=== PATIENT | female | born 1965 | race Caucasian/White ===

== ENCOUNTER → 2020-09-06 15:14 | Outpatient (CLI) | payer OTHER, SELFPAY ==
--- NOTE | ~2020-09-06 | MM_ITS ---
EXAMINATION: MM screening [facility] BI w [facility] HISTORY: Screening mammogram TECHNIQUE: Craniocaudal and mediolateral oblique 3-D tomosynthesis images were obtained and synthetic 2-D images were generated. CAD analysis was submitted and interpreted. COMPARISON: 06/21/2019, 11/08/2017, 05/24/2015 BREAST PARENCHYMAL COMPOSITION: The breasts are heterogeneously dense, which may obscure small masses . FINDINGS: There is no evidence of suspicious mass, calcification, or architectural distortion to sugg est malignancy in either breast. There has been no suspicious interval change. IMPRESSION: 1. No mammographic evidence of malignancy. 2. Recommend routine screening mammography in one year. BI-RADS Category 1: Negative Reviewed, dictated and finalized at location A. 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
== END ==
PROVIDERS: PCP Family Medicine; Visit Provider Family Medicine
DX: Z12.31 Encounter for screening mammogram for malignant neoplasm of breast (principal)
CPT/HCPCS: 77063; 77067

== ENCOUNTER → 2023-04-08 07:11 | Outpatient (CLI) | payer OTHER, SELFPAY ==
--- NOTE | ~2023-04-08 | MM_ITS ---
EXAMINATION: MM screening [facility] w [facility] HISTORY: Screening TECHNIQUE: Craniocaudal and mediolateral oblique 3-D tomosynthesis images were obtained and synthetic 2-D images were generated. CAD analysis was submitted and interpreted. COMPARISON: Comparison to multiple prior studies sequentially, with oldest reviewed study dated 06/20. BREAST PARENCHYMAL COMPOSITION: The breasts are heterogeneously dense, which may obscure small masses FINDINGS: There is no evidence of suspicious mass, calcification, or architectural distortion to sugg est malignancy in either breast. There has been no suspicious interval change. IMPRESSION: 1. No mammographic evidence of malignancy. 2. Recommend routine screening mammography in one year. BI-RADS Category 1: Negative Reviewed, dictated and finalized at location A.
== END ==
PROVIDERS: PCP Family Medicine; Visit Provider Family Medicine
DX: Z12.31 Encounter for screening mammogram for malignant neoplasm of breast (principal)
CPT/HCPCS: 77063; 77067

== ENCOUNTER 2023-07-09 11:24 | Outpatient (CLI) | payer OTHER, SELFPAY ==
--- NOTE | ~2023-07-09 | CT_ITS ---
EXAMINATION: CT abdomen pelvis wo con DATE: 07/09/2023 11:48 INDICATION: Right flank and lower abdominal pain TECHNIQUE: Computed tomography (CT) of the abdomen and pelvis was performed without intravenous contr ast. Automated exposure control and iterative reconstruction technique were employed. Exam dose: 262 .17 mGy-cm total exam DLP. COMPARISON: None. FINDINGS: There is minimal discoid atelectasis or scarring at the bases of both lower lobes. No infil trate or consolidation at the lung bases. Normal heart size. No pericardial or pleural effusion. The liver, gallbladder, bile ducts, pancreas, pancreatic duct, spleen and adrenal glands are unremark able. (This examination is not excluded gallstones; gallbladder ultrasound would be more sensitive an d accurate for this purpose.) No renal mass lesion or urinary tract calculus or hydroureteronephrosis. The urinary bladder is relat ively evacuated, otherwise unremarkable. The uterus and adnexal areas appear normal. Normal appendix. Diverticulosis of the sigmoid colon; no CT evidence of diverticulitis. No bowel obst ruction, bowel wall thickening, pneumatosis or intraperitoneal free air. Lumbar dextroscoliosis. Severe degenerative disc disease on the left at L4-5. No suspicious osteolyti c or osteoblastic lesions are noted. IMPRESSION: No urinary tract calculus or hydroureteronephrosis Normal appendix Diverticulosis of the sigmoid colon; no CT evidence of diverticulitis Reviewed, dictated and finalized at Location A. Reviewed, dictated and finalized at location B.
== END 2023-07-09 11:25 | disposition home or self-care (01) ==
PROVIDERS: PCP Family Medicine; Visit Provider Family Medicine
DX: K57.30 Diverticulosis of large intestine without perforation or abscess without bleeding (principal)
CPT/HCPCS: 74176

== ENCOUNTER 2024-06-22 06:57 | Outpatient (CLI) | payer OTHER, SELFPAY ==
--- NOTE | ~2024-06-22 | MR_ITS ---
MRI of the right knee Clinical history: Pain Technique: Coronal proton density and proton density-weighted images, sagittal proton-density and T2 fat-sat images, and axial proton-density fat-saturated images were acquired. Findings: Anterior and posterior cruciate ligaments are intact. Medial collateral ligament and the la teral collateral ligament complex are intact. Popliteus tendon is intact. There is complex tearing of the posterior horn of the medial meniscus, extending to the body segment. Lateral meniscus is intact. There is mild chondral thinning along the medial patellar facet. There is probable focal high-grade c hondromalacia at the medial tibial plateau region with underlying subchondral reactive marrow edema. Extensor mechanism is intact. Small joint effusion present. No Dave's cyst. Impression: Complex tearing of the posterior horn of the medial meniscus, extending into the body segment. 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 Reviewed, dictated and finalized at location . Impression: Complex tearing of the posterior horn of the medial meniscus, extending into th e body segment. 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
== END 2024-06-22 06:58 | disposition home or self-care (01) ==
LOC: MICIMG 06:58
PROVIDERS: PCP Nurse Practitioner Family; Visit Provider Physician Assistant Surgical
DX: S83.241A Other tear of medial meniscus, current injury, right knee, initial encounter (principal); M22.41 Chondromalacia patellae, right knee
CPT/HCPCS: 73721

== ENCOUNTER 2024-12-05 12:56 | Emergency (ER) | payer OTHER, SELFPAY ==
--- NOTE | ~2024-12-05 | XR_ITS ---
XR chest 2V Ordering provider: Bambi Fraga MD History: 59 years Female with . chest pressure, COUGH, SOB . Comparison: None. FINDINGS: MEDIASTINUM: The cardiac silhouette is not enlarged. LUNGS: No effusions or pneumothorax. Loss of silhouette of the right cardiac border with opacificatio n suggestive of atelectasis versus pneumonia in the middle lobe. OTHER: No free air under the diaphragm. IMPRESSION: Right middle lobe atelectasis versus pneumonia. Reviewed, dictated and finalized at location A.
--- NOTE | 2024-12-05 12:58 | ECG_ITS ---
Test Date: 2024-12-05 13:06:42 Measurements Intervals [place] Rate: 84 P: 54 DE: 155 QRS: -2 QRSD: 74 T: -8 QT: 351 QTc: 417 Interpretive Statements SINUS RHYTHM POSSIBLE LEFT ATRIAL ENLARGEMENT [-0.1mV P WAVE IN V1/V2] LOW QRS VOLTAGE IN PRECORDIAL LEADS [QRS DEFLECTION < 1.0 mV IN CHEST LEADS] NONSPECIFIC T WAVE ABNORMALITY ABNORMAL ECG Electronically Signed On 12-06-2024 12:08:41 CDT by Scott Branch M.D.
--- NOTE | 2024-12-05 13:04 | ED.CHESTPAIN ---
HPI - Chest Pain General Chief Complaint: Chest Pain <Collin Mclaughlin PA-C - Last Filed: 12/05/24 17:56> Stated Complaint: Chest tightness/pressure <Collin Mclaughlin PA-C - Last Filed: 12/05/24 17:56> Time Seen by Provider: 12/05/24 14:57 <Collin Mclaughlin PA-C - Last Filed: 12/05/24 17:56> Focused HPI: This is a 52-year-old with chief complaint of chest pain/pressure beginning yesterday. Reports pain somewhat worsened today so she called PCP referred her to the ER. States she has had a little dry cough but nothing productive her significant shortness of breath. Denies any recent illness otherwise. Pain is in the central chest and does not really radiate. Denies cardiac history or history of diabetes. GENERAL: Well-appearing, well-nourished, and in no acute distress. HEAD: Normocephalic, atraumatic. CHEST: Clear to auscultation. No respiratory distress. HEART: Regular rate and rhythm. NEURO: Alert and oriented x3. Patient screened in triage and initial orders placed. Additional care and disposition to be based upon diagnostic testing and treatment. <Collin Mclaughlin PA-C - Last Filed: 12/05/24 17:56> Source: patient <Collin Mclaughlin PA-C - Last Filed: 12/05/24 17:56> Mode of arrival: ambulatory <JUDD Herr Last Filed: 12/05/24 17:56> Limitations: no limitations <Collin Mclaughlin PA-C - Last Filed: 12/05/24 17:56> History of Present Illness HPI narrative: Agree with the above with the following additions/corrections: Patient presents with chest tightness/discomfort/pressure (hestitant to call it pain ) in the center of her chest. No palliating or provoking factors. Not positional. Tried Tums with no change. Non radiating, 6/10 in severity, constant. No shortness of breath, nausea, vomiting. No cough except for a scant tickle. No fever/chills. Decreased appetite. No lower extremity edema, unilaterally or bilaterally. No immobility in the past 3 days or surgeries in the past 4 weeks. No prior DVT/PE. No hemoptysis or history of malignancy. First went to urgent care but told could not work up chest pain. This has never happened before. Does not have a lining printer. Patient's PCP is in building with Margo Kimble. Cardiac risk factors: No HTN. HLD +/- (has been told high before but not on meds). No DM. Not obese (see MDM). Non smoker. No family history in first degree relative <65yo. No personal history of IA/TIA/CVA. <Bambi Fraga MD - Last Filed: 12/05/24 21:25> Related Data Home Medications: Home Medications ?Medication ?Instructions ?Recorded ?Confirmed ?Last Taken ?Type trazodone 50 mg tablet mg PO 05/25/24 05/25/24 Unknown History <Collin Mclaughlin PA-C - Last Filed: 12/05/24 17:56> Allergies/Adverse Reactions: Allergies Allergy/AdvReac Type Severity Reaction Status Date / Time No Known Allergies Allergy Unverified 12/05/24 12:57 <Collin Mclaughlin PA-C - Last Filed: 12/05/24 17:56> Review of Systems Review of Systems: All systems as dictated in HPI <Collin Mclaughlin PA-C - Last Filed: 12/05/24 17:56> [facility] Surgical History Surgical History: Surgical History History of urologic surgery TBT History of orthopedic surgery knee <Collin Mclaughlin PA-C - Last Filed: 12/05/24 17:56> Family History Family History: Family History (Updated 05/25/24 @ 08:39 by Ladonna Zhou MA) Mother Lung cancer Father Dementia <Collin Mclaughlin PA-C - Last Filed: 12/05/24 17:56> Social History Social History: Social History (Updated 05/25/24 @ 08:40 by Ladonna Zhou MA) Smoking status: Never smoker Alcohol intake: current Alcohol use details: socially Substance use: never Substance use type: does not use Current Housing: Decline to Answer Concerned About Future Housing: Decline to Answer Difficulty Paying Gas/Electric Bills: Decline to Answer Difficulty Paying for Meds: Decline to Answer Currently Unemployed: Decline to Answer Education: Decline to Answer Difficulty w/ Childcare or Family Care: Decline to Answer Living arrangements: with family Occupation/Education: occupation Gender identity (if verbalized by the patient): Female Sexual Orientation (if Verbalized by the Patient): Straight or Heterosexual <Collin Mclaughlin PA-C - Last Filed: 12/05/24 17:56> Exam Narrative: GENERAL: Well-appearing, well-nourished, and in no acute distress. HEAD: Normocephalic, atraumatic. EYES: PERRLA and EOMI. ENT: Nares clear, no rhinorrhea or epistaxis. Mucous membranes moist. Oropharynx without tonsillar hypertrophy exudate or other lesions. NECK: Supple. No adenopathy or masses. CHEST: No respiratory distress. Clear to auscultation. No wheezes rales or rhonchi HEART: Regular rate and rhythm. No murmur heard. Normal peripheral pulses. ABDOMEN: Soft, nontender, nondistended, normal active bowel sounds. MSK: Normal range of motion. No edema. SKIN: Warm, dry, no rash. NEURO: Alert and oriented x4. No focal deficits. PSYCH: Normal mood and affect. <Collin Mclaughlin PA-C - Last Filed: 12/05/24 17:56> GENERAL: Well-appearing, well-nourished, and in no acute distress. HEAD: Normocephalic, atraumatic. EYES: Non injected, non icteric ENT: Nares clear, no rhinorrhea or epistaxis. NECK: Supple. CHEST: Speaking in full sentences. No respiratory distress. HEART: Regular rate and rhythm. ABDOMEN: Soft, nondistended. EXTREMITIES: Normal range of motion. No lower extremity edema. SKIN: Warm, dry, no rash. NEURO: No focal deficits. Alert and oriented x3. PSYCH: Normal mood and affect. <Bambi Fraga MD - Last Filed: 12/05/24 21:25> Course Vital Signs Vital signs: Vital Signs Temperature 97.6 F 12/05/24 13:31 Pulse Rate 83 12/05/24 13:31 Respiratory Rate 16 12/05/24 13:31 Blood Pressure 133/74 12/05/24 13:31 Pulse Oximetry 100 12/05/24 13:31 Temperature 97.6 F 12/05/24 13:31 Pulse Rate 84 12/05/24 16:36 Respiratory Rate 16 12/05/24 16:36 Blood Pressure 125/73 12/05/24 16:36 Pulse Oximetry 99 12/05/24 16:36 Oxygen Delivery Room Air 12/05/24 15:08 <Collin Mclaughlin PA-C - Last Filed: 12/05/24 17:56> Vital Signs Temperature 97.6 F 12/05/24 13:31 Pulse Rate 83 12/05/24 13:31 Respiratory Rate 16 12/05/24 13:31 Blood Pressure 133/74 12/05/24 13:31 Pulse Oximetry 100 12/05/24 13:31 Temperature 97.6 F 12/05/24 13:31 Pulse Rate 84 12/05/24 16:36 Respiratory Rate 16 12/05/24 16:36 Blood Pressure 125/73 12/05/24 16:36 Pulse Oximetry 99 12/05/24 16:36 Oxygen Delivery Room Air 12/05/24 15:08 <Bambi Fraga MD - Last Filed: 12/05/24 21:25> MDM - Chest Pain MDM Narrative Medical decision making narrative: This is a yo presents to the ED for . Vitals . Exam shows Lab work . Imaging . Patient will be discharged in stable condition. Supportive measures discussed and return precautions given. Patient is understanding and agreeable with plan for discharge with PCP follow-up. <Collin Mclaughlin PA-C - Last Filed: 12/05/24 17:56> This is a 59 yo who presents to the ED for chest tightness/discomfort/pressure. Afebrile with vital signs within normal limits. Cannot apply PERC due to patient's age. Wells' Score for PE: Clinical S/S DVT (No 0, Yes +3) 0 PE #1 Dx OR equally likely (No 0, Yes +3) 0 HR >100 (No 0, Yes +1.5) 0 Immobiliazation at least 3 d OR surgery prev 4 wks (No 0, Yes +1.5) 0 Previous Dx DVT/PE (No 0, Yes +1.5): 0 Hemoptysis (No 0, Yes +1): 0 Malignancy w/ Tx within 6 mos or palliative (No 0, Yes +1): 0 D dimer ordered HEART SCORE History 2 highly suspicious 1 moderately suspicious 0 slightly suspicious History score [address] depression/elevation not due to LBBB, LVH, or digoxin [address] depression but LBBB, LVH, nonspecific repolarization changes 0 normal ECG score 0 Age 2 >/= 65 1 45-64 0 <45 Age score 1 Risk factors (HTN, hypercholesterolemia, DM, obesity with BMI >30, current smoker or cessation </=3mo), positive fam hx with parent or sibling with CVD before age 65, atherosclerotic disease (prior IA, PCI/CABG, CVA/TIA, or peripheral arterial disease) 2 >/= 3 risk factors or history of atherosclerotic dz 1 - 1-2 risk factors 0 no known risk factors Risk factor score 0-1 (possible hyperlipidemia, has been told elevated before but not on medication) Patient states weight 135 lb and height 5'3 for BMI 23.9 - not obese Initial Troponin 2 >3 times normal limit 1 1-3 times normal limit 0 less than or equal to normal limit Troponin score 0 Total HEART Score 1 or 2. Dimer normal. Will defer CT imaging. Patient does states she took famotidine / pepcid before coming to the ED; bought these OTC at the pharmacy. No prior GI diagnoses the at this time she does state that she has been taking 600 mg of ibuprofen 2-3 times per day. Possible gastritis. GI cocktail ordered and patient to be given Rx for short course omeprazole. Chest x-ray with right middle lobe atelectasis versus pneumonia. Shared decision making with the patient on deferring or doing a short course of antibiotics. Although patient is otherwise asymptomatic, she did decide to take a course of antibiotics. Patient will be discharged in stable condition. Supportive measures discussed and return precautions given. Patient is understanding and agreeable with plan for discharge with PCP follow-up as well as cardiology follow up for work up given her low, but not negligible, risk. <Bambi Fraga MD - Last Filed: 12/05/24 21:25> Differential Diagnosis Differential diagnosis: Likely stable angina, unstable angina pectoris, atypical chest pain, st elevation myocardial infarction, costochondritis, chest pain, biliary colic and other (pulmonary embolism) <Bambi Fraga MD - Last Filed: 12/05/24 21:25> Lab Data Attestation: I reviewed the patient's lab results. <Bambi Fraga MD - Last Filed: 12/05/24 21:25> Result diagrams: 12/05/24 13:15 12/05/24 13:15 <Collin Mclaughlin PA-C - Last Filed: 12/05/24 17:56> Labs: Lab Results 12/05/24 12/05/24 12/05/24 Range/Units 13:14 13:15 16:02 WBC 6.3 (4.5-10.0) K/mm3 RBC 4.42 (4.2-5.4) M/mm3 Hgb 13.8 (12.0-15.0) g/dL Hct 41.7 (37.0-47.0) % MCV 94.3 (80-100) fl MCH 31.2 (26-34) pg MCHC 33.1 (32-36) g/dl RDW 12.6 (11.5-14.5) % Plt Count 218 (150-375) k/mm3 MPV 11.3 H (7.4-10.4) fl Immature Gran % (Auto) 0.2 (0-0.5) % Neut % (Auto) 60.8 (45.5-73.1) % Lymph % (Auto) 28.4 (18.3-44.2) % Emanuel % (Auto) 8.7 H (2.6-8.5) % Eos % (Auto) 1.3 (0-4.4) % Baso % (Auto) 0.6 (0.2-1.2) % Lymph # (Auto) 1.80 (0.9-3.2) K/mm3 Emanuel # (Auto) 0.6 (0.1-0.6) K/mm3 Eos # (Auto) 0.1 (0-0.3) K/mm3 Baso # (Auto) 0.0 (0.0-0.1) K/mm3 Abs Immat Gran (auto) 0.01 (0.00-0.031) K/mm3 Absolute Neuts (auto) 3.9 (1.3-6.7) K/mm3 Absolute Nucleated RBC 0.000 (0.0-0.012) K/mm3 Nucleated RBC % 0.0 (0.0-0.2) % PT 12.6 (11.1-14.7) Seconds INR 0.9 APTT 26.1 (22.3-36.8) Seconds D-Dimer < 0.27 (<0.48) ug/mL Sodium 141 (137-145) mmol/L Potassium 3.9 (3.4-5.0) mmol/L Chloride 102 (98-107) mmol/L Carbon Dioxide 28 (22-30) mmol/L Anion Gap 11 (4-12) mmol/L BUN 15 (7-17) mg/dL Creatinine 0.99 (0.7-1.0) mg/dL Estim Creat Clear Calc Not Reportable Estimated GFR 58 L (59 - ) Glucose 112 H (65-110) mg/dL Calcium 9.8 (8.4-10.2) mg/dL Total Bilirubin 0.3 (0.2-1.3) mg/dL AST 23 (14-36) U/L ALT 16 (6-35) U/L Alkaline Phosphatase 62 (38-126) U/L Troponin I < 0.012 < 0.012 (0.000-0.034) ng/mL Total Protein 8.0 (6.3-8.2) g/dL Albumin 4.7 (3.5-5.1) g/dL Lipase 113 (23-300) U/L <Collin Mclaughlin PA-C - Last Filed: 12/05/24 17:56> Lab Results 12/05/24 12/05/24 12/05/24 Range/Units 13:14 13:15 16:02 WBC 6.3 (4.5-10.0) K/mm3 RBC 4.42 (4.2-5.4) M/mm3 Hgb 13.8 (12.0-15.0) g/dL Hct 41.7 (37.0-47.0) % MCV 94.3 (80-100) fl MCH 31.2 (26-34) pg MCHC 33.1 (32-36) g/dl RDW 12.6 (11.5-14.5) % Plt Count 218 (150-375) k/mm3 MPV 11.3 H (7.4-10.4) fl Immature Gran % (Auto) 0.2 (0-0.5) % Neut % (Auto) 60.8 (45.5-73.1) % Lymph % (Auto) 28.4 (18.3-44.2) % Emanuel % (Auto) 8.7 H (2.6-8.5) % Eos % (Auto) 1.3 (0-4.4) % Baso % (Auto) 0.6 (0.2-1.2) % Lymph # (Auto) 1.80 (0.9-3.2) K/mm3 Emanuel # (Auto) 0.6 (0.1-0.6) K/mm3 Eos # (Auto) 0.1 (0-0.3) K/mm3 Baso # (Auto) 0.0 (0.0-0.1) K/mm3 Abs Immat Gran (auto) 0.01 (0.00-0.031) K/mm3 Absolute Neuts (auto) 3.9 (1.3-6.7) K/mm3 Absolute Nucleated RBC 0.000 (0.0-0.012) K/mm3 Nucleated RBC % 0.0 (0.0-0.2) % PT 12.6 (11.1-14.7) Seconds INR 0.9 APTT 26.1 (22.3-36.8) Seconds D-Dimer < 0.27 (<0.48) ug/mL Sodium 141 (137-145) mmol/L Potassium 3.9 (3.4-5.0) mmol/L Chloride 102 (98-107) mmol/L Carbon Dioxide 28 (22-30) mmol/L Anion Gap 11 (4-12) mmol/L BUN 15 (7-17) mg/dL Creatinine 0.99 (0.7-1.0) mg/dL Estim Creat Clear Calc Not Reportable Estimated GFR 58 L (59 - ) Glucose 112 H (65-110) mg/dL Calcium 9.8 (8.4-10.2) mg/dL Total Bilirubin 0.3 (0.2-1.3) mg/dL AST 23 (14-36) U/L ALT 16 (6-35) U/L Alkaline Phosphatase 62 (38-126) U/L Troponin I < 0.012 < 0.012 (0.000-0.034) ng/mL Total Protein 8.0 (6.3-8.2) g/dL Albumin 4.7 (3.5-5.1) g/dL Lipase 113 (23-300) U/L <Bambi Fraga MD - Last Filed: 12/05/24 21:25> Imaging Data Radiologist's impression: Impressions Chest X-Ray 12/05/24 13:39 IMPRESSION: Right middle lobe atelectasis versus pneumonia. <Bambi Fraga MD - Last Filed: 12/05/24 21:25> ECG Data EKG #1: Attestation: I personally reviewed and interpreted this ECG as follows: <Bambi Fraga MD - Last Filed: 12/05/24 21:25> ECG completion date: 12/05/24 <Bambi Fraga MD - Last Filed: 12/05/24 21:25> ECG completion time: 13:06 <Bambi Fraga MD - Last Filed: 12/05/24 21:25> Interpretation: Normal sinus rhythm at a rate of 84 beats per minute. OR interval 155. QRS 74. QT/QTC 351/393. Good R-wave progression across the precordial leads. T-wave inversion in lead 3 but not in contiguous inferior leads 2 and AVF. No other T-wave inversions. <Bambi Fraga MD - Last Filed: 12/05/24 21:25> EKG #2: Attestation: I personally reviewed and interpreted this ECG as follows: <Bambi Fraga MD - Last Filed: 12/05/24 21:25> ECG completion date: 12/05/24 <Bambi Fraga MD - Last Filed: 12/05/24 21:25> ECG completion time: 16:33 <Bambi Fraga MD - Last Filed: 12/05/24 21:25> Interpretation: Normal sinus rhythm at a rate of 72 beats per minute. OR interval 163. QRS 76. QT/QTC 383/407. Good R-wave progression across the precordial leads. T-wave inversion isolated to lead 3 but otherwise upright in normal in contiguous inferior leads 2 and AVF. <Bambi Fraga MD - Last Filed: 12/05/24 21:25> Discharge Plan Discharge Clinical Impression: Chest pain, Abnormal chest x-ray <Collin Mclaughlin PA-C - Last Filed: 12/05/24 17:56> Patient Disposition: Home, Self-Care <Collin Mclaughlin PA-C - Last Filed: 12/05/24 17:56> Condition: Stable <Collin Mclaughlin PA-C - Last Filed: 12/05/24 17:56> Instructions: Antibiotic Form, Chest Pain (DC), Gastritis (DC) <Collin Mclaughlin PA-C - Last Filed: 12/05/24 17:56> Additional Instructions: As we discussed, the etiology of your symptoms remains unclear however you are otherwise low risk and based on this, recommend following up with her primary care physician. They can either help you with outpatient workup/follow-up by ranging these details. Alternatively the name of a lining printer is listed below. Return to the emergency department with any new or worsening symptoms. Acetaminophen/Tylenol (maximum 4000 mg per day) is safe to take with NSAIDs (ibuprofen/Motrin) for pain relief. Given that you do use ibuprofen multiple times a day, it is possible that this represents gastritis. Make sure you are taking that medicatoin with food to reduce side effects if this is contributing or causing your symptoms. You can also trial a short course of omeprazole. <Collin Mclaughlin PA-C - Last Filed: 12/05/24 17:56> Patient Language: Turkish <Collin Mclaughlin PA-C - Last Filed: 12/05/24 17:56> Prescriptions: New omeprazole 20 mg tablet,delayed release (DR/EC) 20 mg PO DAILY Qty: 14 0RF acetaminophen 500 mg capsule 1,000 mg PO Q6H PRN (Reason: pain) Qty: 30 0RF azithromycin 250 mg tablet 250 mg PO DAILY 4 Days Qty: 4 0RF Rx Instructions: start on day 2 of therapy No Action trazodone 50 mg tablet PO estradiol 0.01 % (0.1 mg/gram) cream 1 g vaginal .COMPLEX Qty: 42.5 5RF Rx Instructions: Place 1g vaginally every other day for the first two weeks. After that, continue using 1g twice weekly <Collin Mclaughlin PA-C - Last Filed: 12/05/24 17:56> Follow-up/Referrals: Farrell,Andrés Mckinney APRN [Primary Care Provider] - Chinmay Beck MD [Physician] - (Cardiology) <Collin Mclaughlin PA-C - Last Filed: 12/05/24 17:56> Stand Alone Forms: Work/School Release IP <Collin Mclaughlin PA-C - Last Filed: 12/05/24 17:56> Time of Disposition: 16:53 <Collin Mclaughlin PA-C - Last Filed: 12/05/24 17:56> 16:53 <Bambi Fraga MD - Last Filed: 12/05/24 21:25>
[2024-12-05 13:31] VITALS: BP 133/74; PULSE 83; RESP 16; TEMP 36.4; O2SAT 100
[2024-12-05 13:33] LABS: Basophils Percent Auto 0.6 % (0.2-1.2); Eosinophils Absolute Auto 0.1 K/mm3 (0-0.3); Eosinophils Percent Auto 1.3 % (0-4.4); Hematocrit 41.7 % (37.0-47.0); Hemoglobin 13.8 g/dL (12.0-15.0); Immature Granulocyte Absolute 0.01 K/mm3 (0.00-0.031); Immature Granulocyte Percent A 0.2 % (0-0.5); Lymphocytes Percent Auto 28.4 % (18.3-44.2); Mean Corpuscular HGB Conc 33.1 g/dl (32-36); Mean Corpuscular Hemoglobin 31.2 pg (26-34); Mean Corpuscular Volume 94.3 fl (80-100); Mean Platelet Volume 11.3 fl (7.4-10.4); Monocytes Absolute Auto 0.6 K/mm3 (0.1-0.6); Monocytes Percent Auto 8.7 % (2.6-8.5); Neutrophils Absolute Auto 3.9 K/mm3 (1.3-6.7); Neutrophils Percent Auto 60.8 % (45.5-73.1); Platelet Count Result 218 k/mm3 (150-375); Red Blood Count 4.42 M/mm3 (4.2-5.4); Red Cell Distribution Width 12.6 % (11.5-14.5); White Blood Count 6.3 K/mm3 (4.5-10.0)
[2024-12-05 13:48] LABS: Alanine Aminotransferase 16 U/L (6-35); Albumin Level 4.7 g/dL (3.5-5.1); Alkaline Phosphatase 62 U/L (38-126); Anion Gap 11 mmol/L (4-12); Aspartate Amino Transferase 23 U/L (14-36); Bilirubin,Total 0.3 mg/dL (0.2-1.3); Blood Urea Nitrogen 15 mg/dL (7-17); Calcium 9.8 mg/dL (8.4-10.2); Carbon Dioxide 28 mmol/L (22-30); Chloride 102 mmol/L (98-107); Estimated Glomerular Filt Rate 58; Glucose 112 mg/dL (65-110); Lipase 113 U/L (23-300); Potassium 3.9 mmol/L (3.4-5.0); Sodium 141 mmol/L (137-145)
[2024-12-05 14:00] LABS: Troponin I < 0.012 ng/mL (0.000-0.034)
[2024-12-05 14:11] LABS: INR 0.9; Prothrombin Time 12.6 Seconds (11.1-14.7)
[2024-12-05 14:13] LABS: Partial Thromboplastin Time 26.1 Seconds (22.3-36.8)
--- OUTSIDE RECORDS SUMMARY | 2024-12-05 14:15 | XMS_ITS | Clinical Summary ---
Author Organization [facility] Address [address] [place] [address] Care Team Providers Care Ski Tow Operator Name Role Phone Unavailable Primary Care Provider Unavailabl e Source Comments [facility],non-owned Affiliates and Associated Physician Practices is amultiple site organization consisting of ambulatory clinics and hospital sitesin [place], [place], [place] and [place]. This disclosure is being madepursuant to the Care Everywhere program and may not contain all information available regarding this patient. Last updated 18.[facility] Allergies No known active allergies Medications * Be aware that medications may not be up to date on this document. Alwaysverify current medications with the patient. Medication Sig Dispensed Refills Start Date End Date Status traZODone (DESYREL) 100 MG tablet Take 100 mg by mouth at bedtime Active celecoxib (CELEBREX) 100 MG capsule Take 100 mg by mouth once daily Active Social History Tobacco Use Types Packs/Day Years Used Date Smoking Tobacco: Never Smokeless Tobacco: Never Alcohol Use Standard Drinks/Week Comments Never 0 (1 standard drink = 0.6 oz pur e alcohol) AUDIT-C Answer Date Recorded Frequency of Alcohol Consumption Never 10/08/2019 Average Number of Drinks Not on file 020 Frequency of Binge Drinking Not on file 09/20 Sex and Gender Information Value Date Recorded Sex Assigned at Not on file Gender Identity Not on file Sexual Orientation Not on file Last Filed Vital Signs Vital Sign Reading Time Taken Comments Blood Pressure 124/74 03/29/2020 12:28 PM CDT Pulse 80 03/29/2020 12:28 PM CDT Temperature 36.7 C (98.1 F) 03/29/2020 12:28 PM CDT Respiratory Rate 16 03/29/2020 12:28 PM CDT Oxygen Saturation 99% 03/29/2020 12:28 PM CDT Inhaled Oxygen Concentration - - Weight 56.7 kg (125 lb) 03/29/2020 12:28 PM CDT Height 160 cm (5' 3 ) 03/29/2020 12:28 PM CDT Body Mass Index 22.14 03/29/2020 12:28 PM CDT Plan of Treatment Health Maintenance Due Date Last Done Comments COLOGUARD (AGES 45-75) - COL ON CA SCREENING 1967 COLON MONITORING 1967 COLONOSCOPY - COLON CA SCREENING 1967 CT COLONOGRAPHY - COLON CA SCREENING 1967 Colorectal Cancer Screening 1967 FIT - COLON CA SCREENING 1967 FLEX SIG - COLON CA SCREENING 1967 LIPID TESTING 1967 MAMMOGRAM 1967 PAP SMEAR 1967 HIV SCREENING 1982 HEPATITIS C SCREENING 11/06/1985 DTAP/TDAP/TD VACCINES (1 - Tdap) 1986 HEPATITIS B VACCINE (1 of 3 - 19+ 3-dose series) 1986 PNEUMOCOCCAL VACCINE 50+ (1 of 1 - PCV) 2017 ZOSTER VACCINE (1 of 2) 2017 COVID-19 VACCINE ( - 2023-2 5 season) 2024 INFLUENZA VACCINE (#1) 2024 DEPRESSION SCREENING 09/20/2024 HIB VACCINE Aged Out No longer eligi ble based on patient's age to complete this topic HPV VACCINE Aged Out No longer eligi ble based on patient's age to complete this topic MENINGOCOCCAL (Group B) VACC INE SHARED DECISION-MAKING Aged Out No longer eligibl e based on patient's age to complete this topic MENINGOCOCCAL GROUPS A/C/Y/W VACCINE Aged Out No longer eligible b ased on patient's age to complete this topic PNEUMOCOCCAL VACCINE Aged Out No long er eligible based on patient's age to complete this topic
--- OUTSIDE RECORDS SUMMARY | 2024-12-05 14:15 | XMS_ITS | Data Portability ---
Author Organization [place] [facility], Main Office Address [address] [place] [id number] Care Team Providers [facility] Aide Name Role Phone PARTHA ORELLANA ZACHARY Primary Care Provider [phone] PARTHA ORELLANA ZACHARY Referring Provider Assessment Encounter Date Assessment Date Assessment LastModified by Organization Details LastModified Time 05/29/2024 05/29/2024 The patient has continuing right knee pain mostly localized to the medial compartment. Her signs and symptoms are consistent with possible medial meniscal pathology. We talked about treatment options today in detail she failed conservative measures so far and has on going pain for several months now. We talked about getting an MRI scan she would like to proceed we will have her see Dr. Kelley for follow up with the MRI scan results. If she does have new significant medial meniscal pathology knee arthroscopy could be considered but she could have articular degenerative changes as she has a little narrowing on the x-ray in the medial compartment. We talked about the fact that knee arthroscopy may not be of benefit if she does have significant osteoarthritis. We will see what the MRI scan shows. She voiced understanding agrees above plan she will continue with current conservative measures including therapy and oral anti-inflammator ies and she will call for any further problems difficulties or questions. [email or web address] Not available 05/29/2024 10:42:10 06/28/2024 06/28/2024 58-year-old female presents for evaluation of her right knee. She reports pain, catching, and locking up of the knee for the past 6 months. She denies any acute injury. Pain is located over the medial part of the knee. She has giving out of the knee. She previously saw Reed PETERS. She had course of treatment with ibuprofen, Voltaren, and cortisone injection in March which did not help. She currently still rates her pain as 6 to 7/10. She previously had a knee scope in 2019 for partial meniscectomy. She has tenderness palpation of the medial joint line. Range of motion 0-130, positive Kaela's, pain at terminal flexion. Stable ligaments. Neurovascular intact. MRI reviewed, demonstrating medial compartment chondromalacia, degenerative tear of the posterior medial meniscus root and body She has a meniscus tear causing mechanical symptoms of catching locking failing conservative management. We discussed the next step would be surgery for partial medial meniscectomy. We discussed that this would primarily be for her mechanical symptoms and may or may not have improvement in her pain given her pre-existing wear and tear. Risks, benefits, and alternatives to surgery were discussed with the patient. Risks include but are not limited to pain, stiffness, infection, bleeding, blood clot, injury to other structures including nerves or blood vessels, need for future surgery, and anesthesia risks. We discussed the goal of surgery is to improve symptoms but there is no guarantee of improvement and it is possible the patient's condition is worse after surgery. Patient agreed and would like to proceed. [email or web address] Not available 06/30/2024 16:37:37 08/04/2024 08/04/2024 58-year-old patient presents today for 1st postop follow-up after right knee arthroscopy and medial meniscectomy on 07/25/[address] Kelley. She states she is doing well overall, 2/10 pain. She is not taking any medications for pain. She has been weight-bearing as tolerated. She denies any catching or locking. Physical exam: Incisions are clean dry and intact without signs and symptoms of infection. Sutures removed and Steri-Strips were placed. Range of motion 0 to 140. No pain with knee range of motion. Tenderness with palpitation around incision sites. Sensation intact throughout. She is progressing as expected. We discussed incisional care in when to call the office if there is changes. She can continue to be activities as tolerated. We will see her back in 4 weeks for recheck. She is in agreement with this plan. Not available 08/04/2024 11:12:40 09/01/2024 09/01/2024 HPI: 58 year old female presents today for a follow-up appointment after undergoing right knee arthroscopy and medial meniscectomy on July 25, 2024, with Dr. Kelley. She is currently five weeks post-surgery and reports that she is doing well overall. She reports experiencing popping and clicking, which are new symptoms that she had never experienced before the surgery. She will occasionally have pain with the popping/clicking . She rates her pain as a 3 out of 10 and is taking ibuprofen twice daily. The patient has been weight-bearing as tolerated and has been participating in physical therapy with her , who is a physical therapist. She denies experiencing any catching or locking in the knee. Physical Exam: General: Normal appearance. No acute distress. Inspection: Incision well healed. No evidence of swelling, erythema, bruising or deformity. Palpation: Nontender to palpation ROM: 0-140. No pain with ROM. Gait: Normal Gait Motor: 5/5 strength in all other planes. Sensation: Lower extremity sensation intact. Assessment & Plan: She is progressing as expected. She can continue activities as tolerated. Continue to progress with physical therapy. Follow-up: 6 weeks for recheck. [email or web address] Not available 09/01/2024 10:31:26 10/13/2024 10/13/2024 58-year-old patient presents today for postop follow-up after right knee arthroscopy and medial meniscectomy on 07/25/[address] Kelley. She states she is doing okay overall, 3/10 pain. She is still experiencing a new catching/grindin g that she did not experience before surgery. It occurs when she is walking, but not when working out. The sudden pain causes her to feel like the knee may buckle. She has been experiencing swelling in the knee in the last few weeks, but it has since resolved. Physical exam: Incisions are well healed. ROM 1-150. Sensation intact throughout. We discussed that options today would be continue conservative measures of therapy exercise, anti-inflammator ies, and possible injections vs new MRI. She would like to continue conservative measures at this time. She can continue to be activities as tolerated. We will see her back as needed for pain. Not available 10/13/2024 09:14:29 Plan of Treatment Reminders Order Date Submit Date Provider Last Modified By Organization Details Last Modified Time Details Appointments Follow Up 30 2024 10:00A M Margo Kimble NP Not available Not available Not available Lab None recorded. Referral None recorded. Procedures None recorded. Surgeries None recorded. Imaging MRI, knee, w/o contrast - please contact patient to schedule. Please give patient disc 2023 024 [facility], [address], [place], [address], 06/22/2024 09:03:17 Medication Orders None recorded. Patient TargetsNo targets recorded. Patient InstructionsNo instructions recorded. Reason for Referral None Reported. Results Created Date Observation Date Name Description Value Unit Range Abnormal Flag Note LastModifiedBy Organization Detail LastModifiedTime 06/22/2006/22/2024 MRI, knee, w/o contr ast No observ ation record ed. [email or web address] [facility] [address], [place], [address], 06/22/2024 09:35:37 06/22/20 24 06/22/2024 MRI, knee, w/o contr ast No observ ation record ed. [email or web address] [facility] [address], [place], [address], 06/22/2024 14:09:51 Result Notes None recorded. Problems Name Problem SNOMED Code Status Onset Date Resolution Date Notes Provider Name and Address Organization Details Recorded Time Degenerati on of cervical interverte bral disc 06768353 Active 2022 Not Available [facility] 3 18:23:55 Vitamin D deficiency 35988957 Active 2022 Not Available [facility] 3 18:23:55 Abdominal pain 93815836 Active 2022 Not Available [facility] 3 18:23:55 Pain of right knee joint 5660593554667 00 Active 2023 Silvina Alcantar, ATC L null, [place] [facility] [place] [employer] [facility] 4 15:07:18 Osteoarthr itis of right knee joint 0005220815067 00 Active 2023 FRAN Ambriz [address], [address], [place], [address] , [employer] [facility] 4 15:41:15 Derangemen t of right knee 5787288937683 9109 Active 2023 FRAN Ambriz [address], [address], [place], [address] , [employer] [facility] 4 10:42:21 Tear of medial meniscus of knee 183681498 Active 2023 Barry Kelley MD [address], [address], [place], [address] , [employer] [facility] 4 08:44:43 Tear of medial meniscus of knee 396281267 Active 2024 Olimpia Ryder Alayna null, [place] [employer] [facility] 5 08:56:00 Insomnia 164114961 Active 2024 PARTHA Johnson [address], [address], [place], [address] , [employer] [facility] 5 16:17:50 Problem Notes None recorded. Procedures Surgical History None recorded. Imaging Results Imaging Date Name Status LastModified by Organiz ation Details LastModified Time 06/22/2024 MRI, knee, w/o contrast completed [email or web address] [facility] [address], [place], [address], 06/22/2024 09:35:37 06/22/2024 MRI, knee, w/o contrast completed [email or web address] [facility] [address], [place], [address], 06/22/2024 14:09:51 Procedure Notes None recorded. Medical Equipment None Reported. Allergies No known drug allergies Medications Name Sig Start Date Stop Date Status Note LastModified by Organization Details LastModified Time celecoxib 200 mg capsule TAKE 1 CAPSULE BY MOUTH IN THE MORNING active Not Available Not Available No t Available prednisone 10 mg tablet PLEASE SEE ATTACHED FOR DETAILED DIRECTION S 08/01 completed Not Available Not Available Not Available trazodone 50 mg tablet TAKE 1 TABLET BY MOUTH AT BEDTIME NEEDED FOR INSOMNIA active Not Available Not Available No t Available hydrocodone 5 mg-acetamin ophen 325 mg tablet TAKE 1 TABLET BY MOUTH EVERY 6 HOURS active Not Available Not Available No t Available meloxicam 15 mg tablet TAKE 1 TABLET BY MOUTH EVERY DAY NEEDED 03/30 completed Not Available Not Available Not Available phenazopyri dine 200 mg tablet TAKE 1 TABLET ORAL ROUTE 3 TIMES PER DAY FOR 6 DOSES NEEDED FOR PAIN 03/30 completed Not Available Not Available Not Available ciprofloxac in 500 mg tablet TAKE 1 TABLET BY MOUTH TWICE A DAY FOR 7 DAYS active Not Available Not Available No t Available sulfamethox azole 800 mg-trimetho prim 160 mg tablet TAKE 1 TABLET BY MOUTH 2 TIMES A DAY FOR 7 DAYS active Not Available Not Available No t Available prednisone 10 mg tablets in a dose pack Take 1 tab by mouth, 3 times a day for 3 daysTake 1 tab by mouth 2 times a day for 2 daysTake 1 tab by mouth once a day for 1 day 08/01 completed Not Available Not Available Not Available Kenalog 10 mg/mL suspension for injection Take 2 mL by injection route. 2023 active [facility]: 0003- 0494- 20 Not Available Not Available Not Available phenazopyri dine 100 mg tablet TAKE 2 TABLETS BY MOUTH 3 TIMES A DAY FOR 2 DAYS. TAKE WITH FOOD. 10/12 completed Not Available Not Available Not Available cephalexin 500 mg capsule 09/04 completed Not Available Not Available Not Available aspirin 81 mg chewable tablet 09/04 completed Not Available Not Available Not Available estradiol 0.01% (0.1 mg/gram) vaginal cream active Not Available Not Available Not Available bupropion HCl XL 150 mg 24 hr tablet, extended release 03/25 completed Not Available Not Available Not Available Marcaine (PF) 0.5 % (5 mg/mL) injection solution Take 4 mL by injection route. 2023 active Not Available Not Available Not Avai lable nitrofurant oin monohydrate /macrocryst als 100 mg capsule TAKE 100 MILLIGRAM S ORAL ROUTE EVERY 12 HOURS FOR 7 DAYS 03/30 completed Not Available Not Available Not Available ibuprofen active Not Available Not Ana ilable Not Available lidocaine (PF) 10 mg/mL (1 %) injection solution In office injection administe red by the provider 12/03 completed [facility]: 0409- 4276- 17 Not Available Not Available Not Available Shingrix (PF) 50 mcg/0.5 mL intramuscul ar suspension, kit 09/04 completed Not Available Not Available Not Available Fluzone Quad (PF) 60 mcg (15 mcg x 4)/0.5 mL IM syringe [facility] 06/27 completed Not Available Not Available Not Available Vitals Date Recorded Body height Provider Name an d Address Organization Details Last Updated DateTime 05/29/2024 165.1 cm Nidhi Gorman [employer] [facility] 05/29/2024 10:12:04 Date Recorded Body height Body mass index (BMI) Body weight Provider Name and Address Organization Details Last Updated DateTime 06/28/2024 160.02 cm 23.9 kg/m2 13310.97 g Benita Tijerina CNA [employer] [facility] 06/28/2024 09:04:13 Date Recorded Body height Body mass index (BMI) Body weight Pain severity - 0-10 verbal numeric rating [Score] - Reported Provider Name and Address Organization Details Last Updated DateTime 08/04/2024 160.02 cm 23.9 kg/m2 75646.97 g 2 Olimpia Ryder [facility] [employer] [facility] 08/04/2024 09:59:51 Date Recorded Body height Body mass index (BMI) Body weight Pain severity - 0-10 verbal numeric rating [Score] - Reported Provider Name and Address Organization Details Last Updated DateTime 09/01/2024 160.02 cm 23.9 kg/m2 46214.97 g 3 Olimpia Ryder [facility] [employer] [facility] 09/01/2024 09:29:50 Date Recorded Body height Body mass index (BMI) Body weight Pain severity - 0-10 verbal numeric rating [Score] - Reported Provider Name and Address Organization Details Last Updated DateTime 10/13/2024 160.02 cm 23.9 kg/m2 73702.97 g 3 Olimpia Ryder [facility] [employer] [facility] 10/13/2024 08:55:35 Social History Question Answer Notes LastModified by Organizat ion Details LastModified Time Tobacco Smoking Status Never Smoker Shama KELI Gray, [employer] [facility] 01/05/2023 10:56:14 What Is Your Level Of Alcohol Consumption? None Information not available 01/05/2023 What Is Your Level Of Caffeine Consumption? Occasional [email or web address] Information not available 01/05/2023 In The 14 Days Before Symptom Onset, Have You Had Close Contact With A Laboratory-confirm ed COVID-19 While That Case Was Ill? No [id number] Information not available 11/18/2022 In The 14 Days Before Symptom Onset, Have You Had Close Contact With A Person Who Is Under Investigation For COVID-19 While That Person Was Ill? No [id number] Information not available 11/18/2022 What Was The Date Of Your Most Recent Tobacco Screening? 01/05/2023 [email or web address] Information not available 01/05/2023 Do You Use Any Illicit Or Recreational Drugs? No [email or web address] Information not available 01/05/2023 Has Tobacco Cessation Counseling Been Provided? No [email or web address] Information not available 01/05/2023 Do You Or Have You Ever Used Any Other Forms Of Tobacco Or Nicotine? No [email or web address] Information not available 01/05/2023 Sex: Unknown Functional Status None recorded. Mental Status None recorded. Family History Relationship Description Onset Age of this Age Resolved Age Notes LastModified by Organization Details LastModified Time Mother Family history of malignant neoplasm Not available 2022 10:55:48 Medical History Condition Response USE OF NSAIDS Y Gynecological History Statement/Question Response Abnormal Pap N STIs/STDs N Do your menstrual headaches get severe N Dislike of Light during Menstrual Headac he N Current Control Method None Breast Problems no Sexually Active? Y Weight gain N Do you get headaches during your period N Menses Monthly N Discharge no Obstetrics History GPAL:G 0 P 0 0 0 0 Immunizations Vaccine Type Date Status Note Provider Nam e and Address Organization Details Recorded Time influenza, unspecified formulation 3 completed KRISH Gamez, [employer] [facility] 07/13/2023 10:20:35 COVID-19, mRNA, LNP-S, bivalent, PF, 50 mcg/0.5 mL or 25mcg/0.25 mL dose 3 completed KRISH Gamez [place] [employer] [facility] 07/13/2023 10:21:26 SARS-COV-2 (COVID-19) vaccine, UNSPECIFIED 1 completed Not Available [facility] 03/10/2023 00:18:48 SARS-COV-2 (COVID-19) vaccine, UNSPECIFIED 1 completed Not Available [facility] 03/10/2023 00:18:48 Past Encounters Encounter ID Performer Location Encounter Start Date Encounter Closed Date Diagnosis/Indication Diagnosis SNOMED-CT Code Diagnosis ICD10 Code Diagnosis Note [id number] [facility] [address] [place] [address] 12/03/2020 00:00:00 12/03/2020 09:10:47 [id number] Sheri Sam MD [facility] Primary Care [address] [place] [address] 01/05/2023 10:49:17 01/05/2023 11:26:05 Adult health examination 916896486 Z00.00 Z13.1 Z13.220 flu vaccine yearlycovi d booster up to dateShingr ix vaccine series completeco loguard orderedpap smear recommende dscreen mammogramD EXA age 62 Degenerati on of cervical intervertebral disc 71295436 M50.30 has h/o degenerati ve disk disease in cervical spine with worsening symptomsin cluding weakness and numbness/t inglingher symptoms are affecting her quality of lifeshe has been following a home exercise program and taking nsaids, using topicals and stretching with no reliefconc bea for cervical spinal stenosis with weakness and constant numbness in upper extremitie swill get MRI for further evaluation Screening for malignant neoplasm of colon 505371684 Z12.11 Screening mammography 24 706126 Z12.31 Vitamin D deficiency 347 17895 E55.9 [id number] [facility] Primary Care [address] [facility] [address] 07/08/2023 15:12:48 07/08/2023 17:22:48 Abdominal pain 59752005 R10.9 flank pain with radiation to the left lower abdpersist ent pain since Wednesday? kidney stonecheck labs and stat CT/abd pelvis [id number] FRAN Ambriz [facility] [address] [place] [address] 03/30/2024 14:55:00 03/30/2024 15:29:16 Pain of right knee joint 9403962242 91069 M25.561 Osteoarthr itis of right knee joint 8462902336 13029 M17.11 [id number] FRAN Ambriz [facility] [address] [place] [address] 05/29/2024 10:07:30 05/29/2024 11:13:15 Osteoarthritis of right knee joint 0850547984 58152 M17.11 Pain of ri ght knee joint 1620639728 52947 M25.561 Derangemen t of right knee 7340040478 5569990 M23.91 [id number] Barry Kelley MD [facility] [address] [place] [address] 06/28/2024 08:59:21 06/28/2024 09:28:27 Derangement of right knee 5110472617 2710435 M23.91 Pain of ri ght knee joint 8382848027 83356 M25.561 Osteoarthr itis of right knee joint 3328971091 92126 M17.11 [id number] Shira Lorenzana NP [facility] [address] [place] [address] 08/04/2024 09:57:54 08/04/2024 10:24:48 Derangement of right knee 0388555755 6503659 M23.91 Pain of ri ght knee joint 3265142172 67293 M25.561 Tear of me dial meniscus of knee 855597348 S83.241A [id number] Jade Cottrell PA-C [facility] [address] [place] [address] 09/01/2024 09:25:35 09/01/2024 10:11:36 Derangement of right knee 8481004328 6431412 M23.91 Pain of ri ght knee joint 1418409915 56686 M25.476 [id number] Shira Lorenzana, INSURANCE CLAIMS ADJUSTER [facility] [address] [place] [address] 10/13/2024 08:52:57 10/13/2024 10:10:07 Derangement of right knee 5851445548 2557788 M23.91 Pain of ri ght knee joint 0470077152 82882 M25.561 Tear of me dial meniscus of knee 191396671 S83.241A Health Concerns Section Related Observation LastModified by Organization Detai ls LastModified Time None Recorded Concern Status LastModified by Organization Details LastModified Time None Recorded Advance Directives Directive None Recorded Payers Encounter Date Sequence Insurance Name Policy Number Policy [employer] Covered Member ID [employer] Member ID Guarantor Name 05/29/2024 1 [employer] ([employer]) [id number] Krystal De La Rosa [id number] Krystal De La Rosa 06/28/2024 1 [employer]) [id number] Krystal De La Rosa [id number] Krystal De La Rosa 08/04/2024 1 [employer] ([employer]) [id number] Krystal De La Rosa [id number] Krystal De La Rosa 09/01/2024 1 [employer] ([employer]) [id number] Krystal De La Rosa [id number] Krystal De La Rosa 10/13/2024 1 [employer] (PP[employer]) [id number] Krystal De La Rosa [id number] Krystal De La Rosa Notes Date Note Type Note Provider Name and Address Organization Details Recorded Time 05/29/2024 text/html Patient returns she is a 58-year-old female who has been having ongoing chronic issues with her right knee for more than 6 months. She denies any specific trauma or injury when I saw her 2 months ago we tried a shot of cortisone she did some physical therapy and is also taking ibuprofen 6-800 mg 2 or 3 times a day depending on how much pain she is having. She states the cortisone really did not give her any significant relief at 1st she thought maybe it was but then she was trying to be more active and this pain has come back almost immediately. She states that the pain seems to be localized mostly to the medial side of the joint she does have some global pain but certainly having more pain medially. She denies any effusion or swelling no locking or catching at times though it feels as though the knee wants to give way if she is twisting or turning on it. Despite conservative measures her symptoms continue. On her last visit her exam was equivocal for provocative maneuvers regarding meniscal pathology she states with time this pain and particularly the medial-sided knee pain have increased. She can not twist or turn in the knee she gets sharp stabbing pains medially. She states it feels similar to several years ago when she had partial medial meniscectomy. She comes in today for further evaluation and treatment. FRAN Ambriz [address] [facility] [facility] [address], [place], [address], [place] [facility] [place] [employer] 05/29/2024 10:43:01 OBGyn Episode No OBEpisode recorded.
[2024-12-05 15:12] VITALS: BP 106/59; PULSE 73; RESP 16; O2SAT 99
--- OUTSIDE RECORDS SUMMARY | 2024-12-05 15:22 | XMS_ITS | Clinical Summary ---
Author Organization [facility] Address [address] [place] [address] Care Team Providers Care Continuous Process Rotary Drum Tanner Name Role Phone Unavailable Primary Care Provider Unavailabl e Source Comments [facility],non-owned Affiliates and Associated Physician Practices is amultiple site organization consisting of ambulatory clinics and hospital sitesin [place], [place], [place]. This disclosure is being madepursuant to the Care Everywhere program and may not contain all information available regarding this patient. Last updated 18.[facility] Allergies No known active allergies Medications * [...]
--- NOTE | 2024-12-05 15:57 | ECG_ITS ---
Test Date: 2024-12-05 16:33:33 Measurements Intervals [place] Rate: 72 P: 54 KS: 163 QRS: 1 QRSD: 76 T: 5 QT: 383 QTc: 420 Interpretive Statements SINUS RHYTHM POSSIBLE LEFT ATRIAL ENLARGEMENT [-0.1mV P WAVE IN V1/V2] LOW QRS VOLTAGE IN PRECORDIAL LEADS [QRS DEFLECTION < 1.0 mV IN CHEST LEADS] NONSPECIFIC T-WAVE ABNORMALITY ABNORMAL ECG Electronically Signed On 12-06-2024 12:13:19 CDT by Scott Branch M.D.
[2024-12-05 16:04] LABS: D Dimer < 0.27 ug/mL (<0.48)
--- NOTE | 2024-12-05 16:20 | PC.NURSE ---
patient walked ambulatory to bathroom and back to room, hooked self back up to monitor. checked on patient after returning from the bathroom, no needs at this time.
[2024-12-05 16:28] LABS: Troponin I < 0.012 ng/mL (0.000-0.034)
[2024-12-05] MEDS: ASPIRIN 81 MG CHEWABLE TABLET 324 MG PO (16:34)
[2024-12-05 16:36] VITALS: BP 125/73; PULSE 84; RESP 16; O2SAT 99
[2024-12-05] MEDS: BELLADONNA ALK/PHENOB ELIX 10 ML, MAG HYDROX/ALUMINUM HYD/SIMETH 30 ML, LIDOCAINE 2% VI... PO (17:00)
[2024-12-05] MEDS: AZITHROMYCIN 250 MG TABLET 500 MG PO (17:01)
== END 2024-12-05 17:10 | disposition home or self-care (01) ==
PROVIDERS: Emergency Provider Student in an Organized Health Care Education/Training Program; PCP Nurse Practitioner Family
DX: R07.89 Other chest pain (principal); R91.8 Other nonspecific abnormal finding of lung field; R94.31 Abnormal electrocardiogram [ECG] [EKG]
CPT/HCPCS: 36415; 71046; 80053; 83690; 84484; 85025; 85380; 85610; 85730; 93005; 99284; A9270

== ENCOUNTER 2025-01-26 07:23 | Outpatient (CLI) | payer OTHER, SELFPAY ==
--- NOTE | ~2025-01-26 | XR_ITS ---
XR_[id number]_CR 01/26/2025 08:08 Indication: Neck pain Procedure: 4 view cervical spine Comparison: No prior studies for comparison. Findings: No fracture, subluxation or dislocation. There is disc narrowing C5-6. Odontoid process is normal. There is mild multilevel uncinate and facet hypertrophy. Lung apices are normal odontoid proc ess is normal. No prevertebral soft tissue swelling. Impression: 1: Moderate cervical spondylosis. Reviewed, dictated and finalized at location A. Impression: 1: Moderate cervical spondylosis.
== END 2025-01-26 07:24 | disposition home or self-care (01) ==
LOC: MICIMG 07:26
PROVIDERS: PCP Nurse Practitioner Family; Visit Provider Nurse Practitioner Family
DX: M47.812 Spondylosis without myelopathy or radiculopathy, cervical region (principal); M50.30 Other cervical disc degeneration, unspecified cervical region
CPT/HCPCS: 72040

== ENCOUNTER 2025-04-24 07:41 | Outpatient (CLI) | payer OTHER, SELFPAY ==
--- NOTE | ~2025-04-24 | MM_ITS ---
EXAMINATION: MM screening anastasia BI w felicity HISTORY: Screening TECHNIQUE: Craniocaudal and mediolateral oblique 3-D tomosynthesis images were obtained and synthetic 2-D images were generated. CAD analysis was submitted and interpreted. COMPARISON: Comparison to multiple prior studies sequentially, with oldest reviewed study dated 2014. BREAST PARENCHYMAL COMPOSITION: The breasts are heterogeneously dense, which may obscure small masses . FINDINGS: There is no evidence of suspicious mass, calcification, or architectural distortion to sug gest malignancy in either breast. IMPRESSION: 1. No mammographic evidence of malignancy. 2. Recommend routine screening mammography in one year. BI-RADS Category 1: Negative Reviewed, dictated and finalized at location B.
--- OUTSIDE RECORDS SUMMARY | 2025-04-24 07:45 | XMS_ITS | Clinical Summary ---
Author Organization [facility] [employer] Address [address] [place] [address] Care Team Providers Care Can Marker Name Role Phone Unavailable Primary Care Provider Unavailabl e Source Comments [facility] [employer],non-owned Affiliates and Associated Physician Practices is amultiple site organization consisting of ambulatory clinics and hospital sitesin [place], [place], [place] and [place]. This disclosure is being madepursuant to the Care Everywhere program and may not contain all information available regarding this patient. Last updated 18.[facility] [employer] Allergies No known active allergies Medications * Be aware that medications may not be up to date on this document. Alwaysverify current medications with the patient. traZODone (DESYREL) 100 MG tablet Take 100 [...] of Binge Drinking Not on file 09/20 Comments No Sex and Gender Information Value Date Recorded Sex Assigned at Not on file Legal Sex Female 11:48 AM [employer] Gender Identity Not on file Sexual Orientation [...] 12:28 PM CDT Height 160 cm (5' 3) 03/29/2020 12:28 PM CDT Body Mass Index [...] SCREENING 1967 LIPID TESTING 1967 MAMMOGRAM 1967 HIV SCREENING 1982 HEPATITIS C SCREENING 11/06/1985 DTAP/TDAP/TD VACCINES (1 - Tdap) 1986 HEPATITIS B VACCINE (1 of 3 - 19+ 3-dose series) 1986 PNEUMOCOCCAL VACCINE 50+ (1 of 1 - PCV) 2017 ZOSTER VACCINE (1 of 2) 2017 COVID-19 VACCINE (1 - 2023-2 5 season) 2024 DEPRESSION SCREENING 09/20/2024 INFLUENZA VACCINE (#1) 2025 HIB VACCINE Aged Out No longer eligi [...] on patient's age to complete this topic Insurance [facility]
== END 2025-04-24 07:42 | disposition home or self-care (01) ==
PROVIDERS: PCP Nurse Practitioner Family; Visit Provider Nurse Practitioner Family
DX: Z12.31 Encounter for screening mammogram for malignant neoplasm of breast (principal)
CPT/HCPCS: 77063; 77067